=== PATIENT | male | born 2000 | race Two or more races ===

== ENCOUNTER 2025-04-06 14:30 | Emergency (ER) | payer SELFPAY | END 2025-04-06 15:45 | disposition home or self-care (01) | LOC: CSHERS 14:30 | DX: S80.01XA Contusion of right knee, initial encounter (principal); F17.290 Nicotine dependence, other tobacco product, uncomplicated; W22.8XXA Striking against or struck by other objects, initial encounter | CPT/HCPCS: 99283 ==